=== PATIENT | female | born 1935 | race Caucasian/White ===

== ENCOUNTER 2022-10-06 18:46 | Inpatient (IN) | payer OTHER, MEDICARE ==
[2022-10-06] MEDS ORDERED: METOPROLOL TARTRATE 5 MG/5 ML VIAL IVPUSH ONE (19:55)
[2022-10-06] MEDS ORDERED: METOPROLOL TARTRATE 50 MG TABLET (FP) PO ONE (19:55)
[2022-10-06] MEDS ORDERED: METOPROLOL TARTRATE 5 MG/5 ML VIAL ONE (19:59)
[2022-10-06 20:22] LABS: CHLORIDE 96 mmol/L (98-107); SODIUM 132 mmol/L (136-145)
[2022-10-06 20:26] LABS: ALBUMIN 3.3 g/dl (3.4-5.0); ANION GAP 14 MMOL/L (8-16); CALCIUM 10.9 mg/dL (8.5-10.1); CO2 21 mmol/L (21-32); GLUCOSE,RANDOM 120 mg/dL (74-106)
[2022-10-06 20:27] LABS: BLOOD UREA NITROGEN 25.4 mg/dL (7-18); LIPASE 37 U/L (73-393)
[2022-10-06 20:29] LABS: SGPT/ALT 47 U/L (13-61)
[2022-10-06 20:30] LABS: CREATININE 2.1 mg/dL (0.55-1.3); SGOT/AST 68 U/L (15-37)
[2022-10-06 20:31] LABS: BILIRUBIN,TOTAL 1.6 mg/dL (0.2-1); TOT PROT 7.8 g/dl (6.4-8.2)
[2022-10-06 20:32] LABS: ALK PHOS 158 U/L (45-117)
[2022-10-06 20:33] LABS: BASO % 0.2 % (0-2.0); HEMOGLOBIN 14.4 GM/dL (10.7-15.3); MCH 33.3 pg (25.7-33.7); MCHC 33.6 g/dl (32.0-36.0); MEAN CELL VOLUME 99.2 fl (80-96); MEAN PLT VOLUME 9.1 fl (7.5-11.1); MONO % 12.2 % (3.8-10.2); NEUT % 81.6 % (42.8-82.8); PLATELET COUNT 263 10^3/uL (134-434); RBC 4.33 M/mm3 (3.60-5.2); RDW 14.6 % (11.6-15.6); WHITE BLOOD COUNT 16.6 K/mm3 (4.0-10.0)
[2022-10-06 20:34] LABS: N-TERMINAL BNP 3620.6 pg/ml (5-450)
[2022-10-06] MEDS ORDERED: SODIUM CHLORIDE 0.9% 500 ML INFUS.BAG IV ONE (20:37)
[2022-10-06 20:42] LABS: INR 1.78 (0.83-1.09); PROTHROMBIN TIME (PATIENT) 20.6 SEC (9.7-13.0)
[2022-10-06 20:45] LABS: ACTIVATED PTT 28.5 SECONDS (25.2-36.5)
[2022-10-06 22:12] LABS: EPI CELLS 13 /uL (0-25.1); HYALINE CASTS 3 /uL (0-3.1); URINE APPEARANCE TURBID; URINE BACTERIA >9,000 /uL (0-1359); URINE BILIRUBIN 1+ (NEGATIVE); URINE COLOR DK YELLOW; URINE GLUCOSE (UA) NEGATIVE (NEGATIVE); URINE KETONE TRACE (NEGATIVE); URINE LEUK ESTERASE 3+ (NEGATIVE); URINE NITRITE NEGATIVE (NEGATIVE); URINE PROTEIN 2+ (NEGATIVE); URINE RBC 36 /uL (0-23.9); URINE WBC 1648 /uL (0-25.8)
[2022-10-06] MEDS ORDERED: CEFTRIAXONE 1 GM in DEXTROSE 5%-WATER - 50 ML IVPB ONE (22:18)
[2022-10-06 23:58] LABS: MAGNESIUM 1.5 mg/dL (1.8-2.4)
[2022-10-07 00:02] LABS: PHOSPHOROUS 2.5 mg/dL (2.5-4.9)
[2022-10-07] MEDS ORDERED: METOPROLOL TARTRATE 5 MG/5 ML VIAL IVPUSH ONE (00:03)
[2022-10-07] MEDS ORDERED: METOPROLOL TARTRATE 50 MG TABLET (FP) ONE ×2 (00:20→09:33)
[2022-10-07] MEDS ORDERED: CEFTRIAXONE 1 GM/50 ML BAG ONE ×2 (00:20→09:34)
[2022-10-07] MEDS ORDERED: MAGNESIUM SULF 50% (8.12 MEQ/2 ML-1 GM VIAL) IVPB ONE (01:53)
[2022-10-07] MEDS ORDERED: SODIUM CHLORIDE 1,000 ML IV SCH (02:00)
[2022-10-07] MEDS ORDERED: MAGNESIUM SULFATE IN WATER 2 GM/50 ML IVPB IVPB ONE (04:48)
[2022-10-07] MEDS ORDERED: HEPARIN NA (PORCINE) 5,000 UNITS/ML 1ML VIAL SQ SCH (06:00)
[2022-10-07 08:23] LABS: BASO % 0.2 % (0-2.0); EOS % 0.1 % (0-4.5); HEMATOCRIT 43.4 % (32.4-45.2); HEMOGLOBIN 14.4 GM/dL (10.7-15.3); LYMPH % 6.5 % (8-40); MCH 33.2 pg (25.7-33.7); MCHC 33.3 g/dl (32.0-36.0); MEAN CELL VOLUME 99.8 fl (80-96); MEAN PLT VOLUME 8.8 fl (7.5-11.1); MONO % 10.4 % (3.8-10.2); NEUT % 82.8 % (42.8-82.8); PLATELET COUNT 259 10^3/uL (134-434); RBC 4.34 M/mm3 (3.60-5.2); RDW 14.7 % (11.6-15.6)
[2022-10-07 09:00] LABS: ALBUMIN 2.8 g/dl (3.4-5.0); BLOOD UREA NITROGEN 21.3 mg/dL (7-18); MAGNESIUM 2.6 mg/dL (1.8-2.4)
[2022-10-07 09:02] LABS: BILIRUBIN,DIRECT 0.5 mg/dL (0.0-0.2)
[2022-10-07 09:03] LABS: CREATININE 1.1 mg/dL (0.55-1.3); PHOSPHOROUS 2.6 mg/dL (2.5-4.9)
[2022-10-07 09:05] LABS: BILIRUBIN,TOTAL 1.2 mg/dL (0.2-1); TOT PROT 7.1 g/dl (6.4-8.2)
[2022-10-07] MEDS ORDERED: APIXABAN 2.5 MG TABLET ONE (09:33)
[2022-10-07] MEDS ORDERED: LEVOTHYROXINE NA 50 MCG TABLET (FP) ONE (09:34)
[2022-10-07] MEDS: CEFTRIAXONE 1 GM in DEXTROSE 5%-WATER - 50 ML IVPB SCH (09:41)
[2022-10-07] MEDS: LEVOTHYROXINE NA 50 MCG TABLET (FP) PO SCH (09:41)
[2022-10-07] MEDS: APIXABAN 2.5 MG TABLET PO SCH ×2 (09:41→21:52)
[2022-10-07] MEDS ORDERED: POTASSIUM CHLORIDE TABS 20 MEQ TABLET.ER (FP) PO ONE (14:04)
[2022-10-07] MEDS: ACETAMINOPHEN 325 MG TABLET (FP) PO PRN ×2 (14:21→18:21)
[2022-10-08] MEDS: LEVOTHYROXINE NA 50 MCG TABLET (FP) PO SCH (06:14)
[2022-10-08 08:28] LABS: BASO % 0.2 % (0-2.0); EOS % 0.5 % (0-4.5); HEMATOCRIT 40.3 % (32.4-45.2); HEMOGLOBIN 13.5 GM/dL (10.7-15.3); LYMPH % 6.1 % (8-40); MCH 33.4 pg (25.7-33.7); MCHC 33.6 g/dl (32.0-36.0); MEAN CELL VOLUME 99.3 fl (80-96); MEAN PLT VOLUME 9.3 fl (7.5-11.1); NEUT % 83.2 % (42.8-82.8); PLATELET COUNT 282 10^3/uL (134-434); RBC 4.05 M/mm3 (3.60-5.2); RDW 14.7 % (11.6-15.6); WHITE BLOOD COUNT 14.4 K/mm3 (4.0-10.0)
[2022-10-08 08:49] LABS: CALCIUM 10.4 mg/dL (8.5-10.1)
[2022-10-08 08:50] LABS: BLOOD UREA NITROGEN 17.9 mg/dL (7-18); MAGNESIUM 1.9 mg/dL (1.8-2.4)
[2022-10-08 08:53] LABS: CREATININE 0.8 mg/dL (0.55-1.3)
[2022-10-08] MEDS: CEFTRIAXONE 1 GM in DEXTROSE 5%-WATER - 50 ML IVPB SCH (10:13)
[2022-10-08] MEDS: APIXABAN 2.5 MG TABLET PO SCH ×2 (10:13→22:22)
[2022-10-09] MEDS: LEVOTHYROXINE NA 50 MCG TABLET (FP) PO SCH (06:14)
[2022-10-09 08:41] LABS: BASO % 0.2 % (0-2.0); EOS % 0.1 % (0-4.5); LYMPH % 5.5 % (8-40); MCH 33.7 pg (25.7-33.7); MCHC 34.1 g/dl (32.0-36.0); MEAN CELL VOLUME 98.8 fl (80-96); MONO % 10.7 % (3.8-10.2); NEUT % 83.5 % (42.8-82.8); PLATELET COUNT 304 10^3/uL (134-434); RBC 4.15 M/mm3 (3.60-5.2); RDW 14.8 % (11.6-15.6); WHITE BLOOD COUNT 14.5 K/mm3 (4.0-10.0)
[2022-10-09 08:43] LABS: CALCIUM 10.9 mg/dL (8.5-10.1)
[2022-10-09 08:44] LABS: ALBUMIN 2.6 g/dl (3.4-5.0); BLOOD UREA NITROGEN 19.5 mg/dL (7-18); MAGNESIUM 1.9 mg/dL (1.8-2.4)
[2022-10-09 08:47] LABS: CREATININE 0.8 mg/dL (0.55-1.3)
[2022-10-09 08:49] LABS: BILIRUBIN,TOTAL 1.1 mg/dL (0.2-1)
[2022-10-09] MEDS: CEFTRIAXONE 1 GM in DEXTROSE 5%-WATER - 50 ML IVPB SCH (09:15)
[2022-10-09] MEDS: APIXABAN 2.5 MG TABLET PO SCH ×2 (09:15→22:03)
[2022-10-09] MEDS: ACETAMINOPHEN 325 MG TABLET (FP) PO PRN (16:38)
[2022-10-09] MEDS ORDERED: METOPROLOL TARTRATE 5 MG/5 ML VIAL IVPUSH PRN (17:22)
[2022-10-09] MEDS ORDERED: traMADol HCL 50 MG TABLET PO ONE (17:22)
[2022-10-09] MEDS ORDERED: traMADol HCL 50 MG TABLET PO PRN (18:06)
[2022-10-10] MEDS: LEVOTHYROXINE NA 50 MCG TABLET (FP) PO SCH (06:39)
[2022-10-10 08:15] LABS: BASO % 0.3 % (0-2.0); EOS % 0.3 % (0-4.5); HEMATOCRIT 38.8 % (32.4-45.2); HEMOGLOBIN 13.1 GM/dL (10.7-15.3); LYMPH % 6.9 % (8-40); MCH 33.4 pg (25.7-33.7); MCHC 33.8 g/dl (32.0-36.0); MEAN CELL VOLUME 98.8 fl (80-96); MEAN PLT VOLUME 8.9 fl (7.5-11.1); MONO % 13.2 % (3.8-10.2); NEUT % 79.3 % (42.8-82.8); PLATELET COUNT 320 10^3/uL (134-434); RBC 3.92 M/mm3 (3.60-5.2); WHITE BLOOD COUNT 16.2 K/mm3 (4.0-10.0)
[2022-10-10 08:28] LABS: ALBUMIN 2.1 g/dl (3.4-5.0); BLOOD UREA NITROGEN 23.1 mg/dL (7-18); CALCIUM 10.8 mg/dL (8.5-10.1); MAGNESIUM 1.9 mg/dL (1.8-2.4)
[2022-10-10 08:30] LABS: CREATININE 0.7 mg/dL (0.55-1.3)
[2022-10-10 08:32] LABS: TOT PROT 6.4 g/dl (6.4-8.2)
[2022-10-10] MEDS: CEFTRIAXONE 1 GM in DEXTROSE 5%-WATER - 50 ML IVPB SCH (09:11)
[2022-10-10] MEDS: APIXABAN 2.5 MG TABLET PO SCH ×2 (09:11→21:09)
[2022-10-11] MEDS: LEVOTHYROXINE NA 50 MCG TABLET (FP) PO SCH (06:40)
[2022-10-11 08:29] LABS: BASO % 0.3 % (0-2.0); EOS % 0.5 % (0-4.5); HEMATOCRIT 38.2 % (32.4-45.2); HEMOGLOBIN 12.9 GM/dL (10.7-15.3); MCH 33.5 pg (25.7-33.7); MCHC 33.7 g/dl (32.0-36.0); MEAN CELL VOLUME 99.6 fl (80-96); MEAN PLT VOLUME 9.1 fl (7.5-11.1); MONO % 10.3 % (3.8-10.2); NEUT % 81.9 % (42.8-82.8); PLATELET COUNT 337 10^3/uL (134-434); RBC 3.83 M/mm3 (3.60-5.2); RDW 14.8 % (11.6-15.6); WHITE BLOOD COUNT 13.4 K/mm3 (4.0-10.0)
[2022-10-11 08:56] LABS: ALBUMIN 2.2 g/dl (3.4-5.0)
[2022-10-11 08:57] LABS: BLOOD UREA NITROGEN 27.6 mg/dL (7-18); CALCIUM 10.9 mg/dL (8.5-10.1)
[2022-10-11 09:00] LABS: CREATININE 0.8 mg/dL (0.55-1.3)
[2022-10-11 09:01] LABS: TOT PROT 6.5 g/dl (6.4-8.2)
[2022-10-11] MEDS: CEFTRIAXONE 1 GM in DEXTROSE 5%-WATER - 50 ML IVPB SCH (09:58)
[2022-10-11] MEDS: APIXABAN 2.5 MG TABLET PO SCH ×2 (09:59→22:09)
[2022-10-11] MEDS ORDERED: SODIUM CHLORIDE 1,000 ML IV SCH (16:30)
[2022-10-12] MEDS: LEVOTHYROXINE NA 50 MCG TABLET (FP) PO SCH (06:26)
[2022-10-12 08:01] LABS: HEMATOCRIT 39.7 % (32.4-45.2); HEMOGLOBIN 13.3 GM/dL (10.7-15.3); MCH 33.4 pg (25.7-33.7); MCHC 33.5 g/dl (32.0-36.0); MEAN CELL VOLUME 99.8 fl (80-96); MEAN PLT VOLUME 8.9 fl (7.5-11.1); PLATELET COUNT 370 10^3/uL (134-434); RBC 3.97 M/mm3 (3.60-5.2); RDW 14.7 % (11.6-15.6); WHITE BLOOD COUNT 13.3 K/mm3 (4.0-10.0)
[2022-10-12 08:24] LABS: CALCIUM 10.4 mg/dL (8.5-10.1)
[2022-10-12 08:25] LABS: BLOOD UREA NITROGEN 26.2 mg/dL (7-18)
[2022-10-12 08:28] LABS: CREATININE 0.7 mg/dL (0.55-1.3); PHOSPHOROUS 2.9 mg/dL (2.5-4.9)
[2022-10-12 08:29] LABS: BILIRUBIN,TOTAL 1.1 mg/dL (0.2-1); TOT PROT 6.4 g/dl (6.4-8.2)
[2022-10-12] MEDS: APIXABAN 2.5 MG TABLET PO SCH ×2 (09:35→21:46)
[2022-10-12 12:01] LABS: BILIRUBIN,DIRECT 0.5 mg/dL (0.0-0.2)
[2022-10-12] MEDS: POLYETHYLENE GLYCOL (HEALTHYLAX) 3350 17 GM PACKET PO SCH (21:49)
[2022-10-13] MEDS: LEVOTHYROXINE NA 50 MCG TABLET (FP) PO SCH (06:32)
[2022-10-13 07:27] LABS: HEMATOCRIT 38.8 % (32.4-45.2); MCH 33.5 pg (25.7-33.7); MCHC 33.6 g/dl (32.0-36.0); MEAN CELL VOLUME 99.7 fl (80-96); MEAN PLT VOLUME 8.9 fl (7.5-11.1); PLATELET COUNT 387 10^3/uL (134-434); RBC 3.89 M/mm3 (3.60-5.2); RDW 14.7 % (11.6-15.6); WHITE BLOOD COUNT 12.8 K/mm3 (4.0-10.0)
[2022-10-13 07:44] LABS: CALCIUM 10.5 mg/dL (8.5-10.1)
[2022-10-13 07:45] LABS: BLOOD UREA NITROGEN 28.2 mg/dL (7-18)
[2022-10-13 07:48] LABS: CREATININE 0.8 mg/dL (0.55-1.3)
[2022-10-13 07:49] LABS: BILIRUBIN,TOTAL 0.7 mg/dL (0.2-1); TOT PROT 6.4 g/dl (6.4-8.2)
[2022-10-13] MEDS: POLYETHYLENE GLYCOL (HEALTHYLAX) 3350 17 GM PACKET PO SCH ×2 (10:26→23:04)
[2022-10-13] MEDS: APIXABAN 2.5 MG TABLET PO SCH ×2 (10:27→23:04)
[2022-10-13] MEDS: LACTULOSE 20 GM/30 ML UDC (FOR ORAL USE ONLY) PO SCH ×2 (18:09→23:11)
[2022-10-14] MEDS: LEVOTHYROXINE NA 50 MCG TABLET (FP) PO SCH (06:04)
[2022-10-14] MEDS: POLYETHYLENE GLYCOL (HEALTHYLAX) 3350 17 GM PACKET PO SCH ×2 (09:22→22:01)
[2022-10-14] MEDS: APIXABAN 2.5 MG TABLET PO SCH ×2 (09:22→22:01)
[2022-10-14] MEDS: LACTULOSE 20 GM/30 ML UDC (FOR ORAL USE ONLY) PO SCH (09:22)
[2022-10-14 09:58] LABS: HEMATOCRIT 39.3 % (32.4-45.2); MCH 33.6 pg (25.7-33.7); MCHC 33.2 g/dl (32.0-36.0); MEAN CELL VOLUME 101.2 fl (80-96); PLATELET COUNT 424 10^3/uL (134-434); RBC 3.89 M/mm3 (3.60-5.2); RDW 15.2 % (11.6-15.6); WHITE BLOOD COUNT 13.9 K/mm3 (4.0-10.0)
[2022-10-14 10:23] LABS: CALCIUM 10.4 mg/dL (8.5-10.1)
[2022-10-14 10:24] LABS: ALBUMIN 1.9 g/dl (3.4-5.0); BLOOD UREA NITROGEN 23.9 mg/dL (7-18); MAGNESIUM 2.1 mg/dL (1.8-2.4)
[2022-10-14 10:26] LABS: CREATININE 0.7 mg/dL (0.55-1.3); PHOSPHOROUS 2.6 mg/dL (2.5-4.9)
[2022-10-14 10:29] LABS: BILIRUBIN,TOTAL 0.9 mg/dL (0.2-1); TOT PROT 6.4 g/dl (6.4-8.2)
[2022-10-14] MEDS ORDERED: SODIUM CHLORIDE 1,000 ML IV SCH (11:00)
[2022-10-14 18:45] LABS: EPI CELLS 5 /uL (0-25.1); HYALINE CASTS 1 /uL (0-3.1); PH,URINE 5.5 (5.0-8.0); URINE APPEARANCE CLOUDY; URINE BACTERIA 0 /uL (0-1359); URINE BILIRUBIN NEGATIVE (NEGATIVE); URINE COLOR DK YELLOW; URINE GLUCOSE (UA) NEGATIVE (NEGATIVE); URINE KETONE NEGATIVE (NEGATIVE); URINE LEUK ESTERASE TRACE (NEGATIVE); URINE NITRITE NEGATIVE (NEGATIVE); URINE PROTEIN TRACE (NEGATIVE); URINE WBC 62 /uL (0-25.8)
[2022-10-15] MEDS: LEVOTHYROXINE NA 50 MCG TABLET (FP) PO SCH ×2 (05:56→06:01)
[2022-10-15 09:07] LABS: GAMMA GLUTAMYL TRANSPEPTIDASE 188 U/L (5-85)
[2022-10-15] MEDS: APIXABAN 2.5 MG TABLET PO SCH ×2 (09:15→22:12)
[2022-10-15] MEDS: POLYETHYLENE GLYCOL (HEALTHYLAX) 3350 17 GM PACKET PO SCH (09:15)
[2022-10-15] MEDS: THIAMINE HCL 200 MG/2 ML VIAL IVPB SCH ×3 (09:16→22:14)
[2022-10-15 11:43] LABS: BASO % 0.2 % (0-2.0); EOS % 0.5 % (0-4.5); HEMATOCRIT 37.2 % (32.4-45.2); HEMOGLOBIN 12.2 GM/dL (10.7-15.3); LYMPH % 8.4 % (8-40); MCHC 32.7 g/dl (32.0-36.0); MEAN PLT VOLUME 8.6 fl (7.5-11.1); MONO % 11.9 % (3.8-10.2); PLATELET COUNT 399 10^3/uL (134-434); RBC 3.69 M/mm3 (3.60-5.2); RDW 14.8 % (11.6-15.6); WHITE BLOOD COUNT 13.6 K/mm3 (4.0-10.0)
[2022-10-15 11:47] LABS: INR 1.57 (0.83-1.09); PROTHROMBIN TIME (PATIENT) 18.1 SEC (9.7-13.0)
[2022-10-15 12:19] LABS: ALBUMIN 1.7 g/dl (3.4-5.0); BLOOD UREA NITROGEN 21.4 mg/dL (7-18); CALCIUM 10.2 mg/dL (8.5-10.1)
[2022-10-15 12:23] LABS: BILIRUBIN,DIRECT 0.3 mg/dL (0.0-0.2); CREATININE 0.7 mg/dL (0.55-1.3)
[2022-10-15 12:24] LABS: BILIRUBIN,TOTAL 0.7 mg/dL (0.2-1); TOT PROT 5.8 g/dl (6.4-8.2)
[2022-10-15 14:50] VITALS: BMI 25.9
[2022-10-15] MEDS: AMINO ACIDS/PROTEIN HYDROLYS 30 ML LIQUID.PKT PO SCH (17:31)
[2022-10-16] MEDS: POLYETHYLENE GLYCOL (HEALTHYLAX) 3350 17 GM PACKET PO SCH ×3 (00:55→22:07)
[2022-10-16] MEDS: THIAMINE HCL 200 MG/2 ML VIAL IVPB SCH ×3 (05:45→22:08)
[2022-10-16] MEDS: LEVOTHYROXINE NA 50 MCG TABLET (FP) PO SCH (07:34)
[2022-10-16 07:35] LABS: HEMATOCRIT 38.2 % (32.4-45.2); HEMOGLOBIN 12.7 GM/dL (10.7-15.3); MCH 33.5 pg (25.7-33.7); MCHC 33.4 g/dl (32.0-36.0); MEAN CELL VOLUME 100.3 fl (80-96); MEAN PLT VOLUME 8.4 fl (7.5-11.1); PLATELET COUNT 392 10^3/uL (134-434); RDW 15.2 % (11.6-15.6); WHITE BLOOD COUNT 15.6 K/mm3 (4.0-10.0)
[2022-10-16 07:57] LABS: CALCIUM 10.3 mg/dL (8.5-10.1)
[2022-10-16 07:58] LABS: ALBUMIN 1.7 g/dl (3.4-5.0); BLOOD UREA NITROGEN 27.1 mg/dL (7-18); MAGNESIUM 1.8 mg/dL (1.8-2.4)
[2022-10-16 08:00] LABS: BILIRUBIN,TOTAL 0.5 mg/dL (0.2-1)
[2022-10-16 08:02] LABS: CREATININE 0.6 mg/dL (0.55-1.3)
[2022-10-16] MEDS: MULTIVITAMINS (DAILY MVI) TABLET (FP) PO SCH (09:55)
[2022-10-16] MEDS: AMINO ACIDS/PROTEIN HYDROLYS 30 ML LIQUID.PKT PO SCH ×2 (09:55→18:08)
[2022-10-16] MEDS: APIXABAN 2.5 MG TABLET PO SCH ×2 (09:55→22:07)
[2022-10-16] MEDS: ASCORBIC ACID 250 MG TABLET (FP) PO SCH (09:55)
[2022-10-16 12:43] LABS: EPI CELLS 32 /uL (0-25.1); HYALINE CASTS 4 /uL (0-3.1); PH,URINE 5.5 (5.0-8.0); URINE APPEARANCE CLOUDY; URINE BACTERIA 13 /uL (0-1359); URINE BILIRUBIN NEGATIVE (NEGATIVE); URINE COLOR YELLOW; URINE GLUCOSE (UA) NEGATIVE (NEGATIVE); URINE KETONE NEGATIVE (NEGATIVE); URINE LEUK ESTERASE 1+ (NEGATIVE); URINE NITRITE NEGATIVE (NEGATIVE); URINE PROTEIN TRACE (NEGATIVE); URINE RBC 2621 /uL (0-23.9); URINE WBC 167 /uL (0-25.8)
[2022-10-16 13:28] LABS: URINE CRYSTALS CALCIUM OXALATE SEEN /hpf
[2022-10-17] MEDS: THIAMINE HCL 200 MG/2 ML VIAL IVPB SCH ×3 (06:29→22:22)
[2022-10-17] MEDS: LEVOTHYROXINE NA 50 MCG TABLET (FP) PO SCH (06:30)
[2022-10-17 07:53] LABS: BASO % 0.2 % (0-2.0); EOS % 0.3 % (0-4.5); HEMATOCRIT 37.1 % (32.4-45.2); LYMPH % 8.8 % (8-40); MCH 32.8 pg (25.7-33.7); MCHC 32.3 g/dl (32.0-36.0); MEAN CELL VOLUME 101.4 fl (80-96); MEAN PLT VOLUME 8.7 fl (7.5-11.1); MONO % 11.2 % (3.8-10.2); NEUT % 79.5 % (42.8-82.8); PLATELET COUNT 384 10^3/uL (134-434); RBC 3.65 M/mm3 (3.60-5.2); RDW 14.9 % (11.6-15.6); WHITE BLOOD COUNT 16.2 K/mm3 (4.0-10.0)
[2022-10-17 08:16] LABS: ALBUMIN 1.7 g/dl (3.4-5.0); MAGNESIUM 1.8 mg/dL (1.8-2.4)
[2022-10-17 08:18] LABS: PHOSPHOROUS 2.7 mg/dL (2.5-4.9)
[2022-10-17 08:19] LABS: CREATININE 0.7 mg/dL (0.55-1.3)
[2022-10-17 08:20] LABS: BILIRUBIN,TOTAL 0.6 mg/dL (0.2-1); TOT PROT 5.8 g/dl (6.4-8.2)
[2022-10-17] MEDS: APIXABAN 2.5 MG TABLET PO SCH ×2 (09:10→22:21)
[2022-10-17] MEDS: MULTIVITAMINS (DAILY MVI) TABLET (FP) PO SCH (09:10)
[2022-10-17] MEDS: ASCORBIC ACID 250 MG TABLET (FP) PO SCH (09:10)
[2022-10-17] MEDS: AMINO ACIDS/PROTEIN HYDROLYS 30 ML LIQUID.PKT PO SCH ×2 (09:11→17:26)
[2022-10-17] MEDS: POLYETHYLENE GLYCOL (HEALTHYLAX) 3350 17 GM PACKET PO SCH (09:11)
[2022-10-17] MEDS ORDERED: MAGNESIUM SULF 50% (8.12 MEQ/2 ML-1 GM VIAL) IVPB ONE (16:43)
[2022-10-17] MEDS ORDERED: NAPH,MB-DB/K PH,MBDB POWDER PACKET PO ONE (16:44)
[2022-10-18] MEDS: POLYETHYLENE GLYCOL (HEALTHYLAX) 3350 17 GM PACKET PO SCH ×3 (00:37→22:33)
[2022-10-18 04:05] VITALS: RESP 20
[2022-10-18] MEDS: LEVOTHYROXINE NA 50 MCG TABLET (FP) PO SCH (06:17)
[2022-10-18 07:49] LABS: HEMATOCRIT 36.9 % (32.4-45.2); HEMOGLOBIN 12.1 GM/dL (10.7-15.3); MCH 33.1 pg (25.7-33.7); MCHC 32.9 g/dl (32.0-36.0); MEAN CELL VOLUME 100.7 fl (80-96); MEAN PLT VOLUME 8.8 fl (7.5-11.1); PLATELET COUNT 390 10^3/uL (134-434); RBC 3.66 M/mm3 (3.60-5.2); RDW 15.1 % (11.6-15.6); WHITE BLOOD COUNT 16.3 K/mm3 (4.0-10.0)
[2022-10-18 08:18] LABS: ALBUMIN 1.6 g/dl (3.4-5.0); PHOSPHOROUS 2.4 mg/dL (2.5-4.9)
[2022-10-18 08:20] LABS: BILIRUBIN,TOTAL 0.6 mg/dL (0.2-1); TOT PROT 5.7 g/dl (6.4-8.2)
[2022-10-18 08:22] LABS: CREATININE 0.6 mg/dL (0.55-1.3)
[2022-10-18 08:31] LABS: BLOOD UREA NITROGEN 25.6 mg/dL (7-18); CALCIUM 9.9 mg/dL (8.5-10.1)
[2022-10-18] MEDS: APIXABAN 2.5 MG TABLET PO SCH ×3 (10:04→22:33)
[2022-10-18] MEDS: ASCORBIC ACID 250 MG TABLET (FP) PO SCH (10:04)
[2022-10-18] MEDS: AMINO ACIDS/PROTEIN HYDROLYS 30 ML LIQUID.PKT PO SCH ×2 (10:04→18:06)
[2022-10-18] MEDS: MULTIVITAMINS (DAILY MVI) TABLET (FP) PO SCH (10:05)
[2022-10-18] MEDS: dilTIAZem HCL 30 MG TABLET PO SCH ×2 (14:20→22:33)
[2022-10-18] MEDS ORDERED: NAPH,MB-DB/K PH,MBDB POWDER PACKET PO ONE (17:39)
[2022-10-19] MEDS: dilTIAZem HCL 30 MG TABLET PO SCH ×2 (06:46→14:54)
[2022-10-19] MEDS: LEVOTHYROXINE NA 50 MCG TABLET (FP) PO SCH (06:46)
[2022-10-19 08:29] LABS: HEMATOCRIT 34.6 % (32.4-45.2); HEMOGLOBIN 11.5 GM/dL (10.7-15.3); MCH 33.3 pg (25.7-33.7); MCHC 33.2 g/dl (32.0-36.0); MEAN CELL VOLUME 100.5 fl (80-96); MEAN PLT VOLUME 8.8 fl (7.5-11.1); PLATELET COUNT 331 10^3/uL (134-434); RBC 3.44 M/mm3 (3.60-5.2); RDW 14.9 % (11.6-15.6); WHITE BLOOD COUNT 18.4 K/mm3 (4.0-10.0)
[2022-10-19 09:14] LABS: CALCIUM 9.7 mg/dL (8.5-10.1)
[2022-10-19 09:15] LABS: ALBUMIN 1.4 g/dl (3.4-5.0); BLOOD UREA NITROGEN 25.6 mg/dL (7-18); MAGNESIUM 1.8 mg/dL (1.8-2.4)
[2022-10-19 09:18] LABS: CREATININE 0.5 mg/dL (0.55-1.3); PHOSPHOROUS 2.6 mg/dL (2.5-4.9)
[2022-10-19 09:19] LABS: BILIRUBIN,TOTAL 0.7 mg/dL (0.2-1); TOT PROT 5.4 g/dl (6.4-8.2)
[2022-10-19] MEDS: AMINO ACIDS/PROTEIN HYDROLYS 30 ML LIQUID.PKT PO SCH (09:52)
[2022-10-19] MEDS: ASCORBIC ACID 250 MG TABLET (FP) PO SCH (09:54)
[2022-10-19] MEDS: MULTIVITAMINS (DAILY MVI) TABLET (FP) PO SCH (09:54)
[2022-10-19] MEDS: POLYETHYLENE GLYCOL (HEALTHYLAX) 3350 17 GM PACKET PO SCH (09:54)
[2022-10-19] MEDS: APIXABAN 2.5 MG TABLET PO SCH (10:58)
[2022-10-19 15:33] VITALS: BP 110/62; PULSE 99; TEMP 98
== END 2022-10-19 16:17 | disposition short-term general hospital (02) | DRG 689 ==
LOC: JER 18:46 → JERBED 19:58 → J4W 10-07 13:39
PROVIDERS: ADMIT Internal Medicine; ATTEND Internal Medicine
DX: N39.0 Urinary tract infection, site not specified (principal); G93.41 Metabolic encephalopathy; M62.82 Rhabdomyolysis; N17.9 Acute kidney failure, unspecified; I24.8 Other forms of acute ischemic heart disease; I13.0 Hypertensive heart and chronic kidney disease with heart failure and stage 1 through stage 4 chronic kidney disease, or unspecified chronic kidney disease; E87.1 Hypo-osmolality and hyponatremia; I48.91 Unspecified atrial fibrillation; I10 Essential (primary) hypertension; E78.5 Hyperlipidemia, unspecified; E03.9 Hypothyroidism, unspecified; B96.20 Unspecified Escherichia coli [E. coli] as the cause of diseases classified elsewhere; R74.01 Elevation of levels of liver transaminase levels; D72.829 Elevated white blood cell count, unspecified
CPT/HCPCS: 0241U-QW; 36415; 70450-TC; 71045-TC-FY; 72125-TC; 72128-TC; 72131-TC; 72170-TC-FY; 74181-TC; 76700-TC; 76775-TC; 80048; 80053; 80061; 80076; 81003; 82140; 82248; 82310; 82550; 82553; 82607; 82728; 82746; 82962; 82977; 83036; 83516; 83540; 83550; 83690; 83735; 83880; 83970; 84100; 84439; 84443; 84484; 85025; 85027; 85610; 85730; 86038; 86664; 86695; 86696; 86704; 86708; 86709; 86803; 86850; 86900; 86901; 87040; 87086; 87186; 87340; 87497; 87517; 87529; 87799; 93005; 93010; 93306-TC; 97116-GP; 97162-GP; 99285-25; C9803-CS; U0003; U0005

== ENCOUNTER 2023-02-08 17:39 | Inpatient (IN) | payer OTHER, MEDICARE ==
[2023-02-08] MEDS ORDERED: SODIUM CHLORIDE 500 ML IV ONE (18:20)
[2023-02-08] MEDS ORDERED: CEFTRIAXONE 1,000 MG in DEXTROSE 5%-WATER - 50 ML IVPB ONE (18:20)
[2023-02-08 18:23] VITALS: BMI 24.1
[2023-02-08 18:47] LABS: PROTHROMBIN TIME (PATIENT) 23.2 SEC (9.7-13.0)
[2023-02-08 18:53] LABS: HEMATOCRIT 31.4 % (32.4-45.2); HEMOGLOBIN 10.3 G/dL (10.7-15.3); MCH 32.2 pg (25.7-33.7); MCHC 32.7 g/dl (32.0-36.0); MEAN CELL VOLUME 98.3 fl (80-96); MEAN PLT VOLUME 8.6 fl (7.5-11.1); PLATELET COUNT 244.6 10^3/uL (134-434); RBC 3.19 10^6/uL (3.60-5.2); RDW 15.4 % (11.6-15.6); WHITE BLOOD COUNT 12.3 10^3/uL (4.0-10.8)
[2023-02-08 18:54] LABS: ALBUMIN 2.3 g/dl (3.4-5.0); BILIRUBIN,TOTAL 0.5 mg/dl (0.2-1); CALCIUM 9.6 mg/dl (8.5-10); CREATININE 0.6 mg/dl (0.55-1.3); POTASSIUM 3.7 mmol/L (3.5-5.1); TOT PROT 6.5 g/dl (6.4-8.2)
[2023-02-08 18:59] LABS: EPITHELIAL CELLS FEW /hpf
[2023-02-08] MEDS ORDERED: cefTRIAXone SODIUM 1 GM VIAL ONE (19:07)
[2023-02-08] MEDS ORDERED: MELATONIN 1 MG TABLET PO PRN (21:10)
[2023-02-08 21:11] LABS: PLATELET ESTIMATE ADEQUATE
[2023-02-08] MEDS: APIXABAN 2.5 MG TABLET PO SCH (23:00)
[2023-02-08] MEDS: METOPROLOL TARTRATE 25 MG TABLET (FP) PO SCH (23:00)
[2023-02-08] MEDS: ATORVASTATIN CA 20 MG TABLET (FP) PO SCH (23:00)
[2023-02-09] MEDS: LEVOTHYROXINE NA 75 MCG TABLET (FP) PO SCH (06:02)
[2023-02-09] MEDS: TAMSULOSIN HCL 0.4 MG CAP PO SCH (08:15)
[2023-02-09] MEDS: CYANOCOBALAMIN 1,000 MCG TABLET (FP) PO SCH (09:41)
[2023-02-09] MEDS: METOPROLOL TARTRATE 25 MG TABLET (FP) PO SCH ×3 (09:41→22:58)
[2023-02-09] MEDS: CEFTRIAXONE 1 GM in DEXTROSE 5%-WATER - 50 ML IVPB SCH (09:42)
[2023-02-09] MEDS: APIXABAN 2.5 MG TABLET PO SCH ×2 (09:42→22:55)
[2023-02-09] MEDS: MULTIVITAMINS (DAILY MVI) TABLET (FP) PO SCH (09:42)
[2023-02-09 16:43] LABS: IRON SERUM 20 ug/dL (50-175); TOTAL IRON BINDING CAPACITY 199 ug/dL (250-450)
[2023-02-09] MEDS: ATORVASTATIN CA 20 MG TABLET (FP) PO SCH (22:55)
[2023-02-10] MEDS: METOPROLOL TARTRATE 25 MG TABLET (FP) PO SCH ×3 (05:57→22:07)
[2023-02-10] MEDS: TAMSULOSIN HCL 0.4 MG CAP PO SCH (07:47)
[2023-02-10] MEDS: LEVOTHYROXINE NA 75 MCG TABLET (FP) PO SCH (07:47)
[2023-02-10 08:15] LABS: HEMATOCRIT 32.6 % (32.4-45.2); HEMOGLOBIN 10.4 G/dL (10.7-15.3); MCH 31.2 pg (25.7-33.7); MCHC 31.7 g/dl (32.0-36.0); MEAN CELL VOLUME 98.1 fl (80-96); MEAN PLT VOLUME 8.9 fl (7.5-11.1); PLATELET COUNT 231.3 10^3/uL (134-434); RBC 3.32 10^6/uL (3.60-5.2); RDW 15.3 % (11.6-15.6); WHITE BLOOD COUNT 8.3 10^3/uL (4.0-10.8)
[2023-02-10 08:48] LABS: ALBUMIN 2.3 g/dl (3.4-5.0); BILIRUBIN,TOTAL 0.4 mg/dl (0.2-1); CREATININE 0.5 mg/dl (0.55-1.3); POTASSIUM 4.1 mmol/L (3.5-5.1); TOT PROT 6.4 g/dl (6.4-8.2)
[2023-02-10] MEDS: CYANOCOBALAMIN 1,000 MCG TABLET (FP) PO SCH (09:39)
[2023-02-10] MEDS: MULTIVITAMINS (DAILY MVI) TABLET (FP) PO SCH (09:39)
[2023-02-10] MEDS: APIXABAN 2.5 MG TABLET PO SCH ×2 (09:39→22:07)
[2023-02-10] MEDS: CEFTRIAXONE 1 GM in DEXTROSE 5%-WATER - 50 ML IVPB SCH (09:40)
[2023-02-10] MEDS: ATORVASTATIN CA 20 MG TABLET (FP) PO SCH (22:07)
[2023-02-11] MEDS: LEVOTHYROXINE NA 75 MCG TABLET (FP) PO SCH (06:14)
[2023-02-11] MEDS: TAMSULOSIN HCL 0.4 MG CAP PO SCH (09:21)
[2023-02-11] MEDS: APIXABAN 2.5 MG TABLET PO SCH (09:22)
[2023-02-11] MEDS: METOPROLOL TARTRATE 25 MG TABLET (FP) PO SCH (09:22)
[2023-02-11] MEDS: CYANOCOBALAMIN 1,000 MCG TABLET (FP) PO SCH (09:22)
[2023-02-11] MEDS: MULTIVITAMINS (DAILY MVI) TABLET (FP) PO SCH (09:23)
[2023-02-11] MEDS: CEFTRIAXONE 1 GM in DEXTROSE 5%-WATER - 50 ML IVPB SCH (09:23)
[2023-02-11 20:21] VITALS: BP 101/58; PULSE 95; RESP 18; TEMP 98.2
[2023-02-11] MEDS ORDERED: CEPHALEXIN MONOHYDRATE 500 MG CAPSULE (UD) PO SCH (22:00)
== END 2023-02-11 21:00 | DRG 690 ==
LOC: FER 17:39 → FM/S 19:10
PROVIDERS: ADMIT Internal Medicine; ATTEND Family Medicine
DX: N39.0 Urinary tract infection, site not specified (principal); I24.8 Other forms of acute ischemic heart disease; E87.1 Hypo-osmolality and hyponatremia; B96.20 Unspecified Escherichia coli [E. coli] as the cause of diseases classified elsewhere; E03.9 Hypothyroidism, unspecified; I48.91 Unspecified atrial fibrillation; E78.00 Pure hypercholesterolemia, unspecified; I07.1 Rheumatic tricuspid insufficiency; D64.9 Anemia, unspecified; F03.90 Unspecified dementia, unspecified severity, without behavioral disturbance, psychotic disturbance, mood disturbance, and anxiety; R50.9 Fever, unspecified; R77.8 Other specified abnormalities of plasma proteins; K76.0 Fatty (change of) liver, not elsewhere classified; K59.00 Constipation, unspecified; K63.5 Polyp of colon; Z86.73 Personal history of transient ischemic attack (TIA), and cerebral infarction without residual deficits; Z85.828 Personal history of other malignant neoplasm of skin
CPT/HCPCS: 0241U-QW; 36415; 70450-TC; 71045-TC-FY; 80053; 81003; 81015; 82550; 83540; 83550; 83605; 83930; 84484; 85027; 85610; 85730; 86850; 86900; 86901; 87040; 87086; 87186; 93005; 97116-GP; 97162-GP; 99285-25

== ENCOUNTER 2023-03-11 18:43 | Inpatient (IN) | payer OTHER, MEDICARE ==
[2023-03-11] MEDS ORDERED: SODIUM CHLORIDE 0.9% 500 ML INFUS.BAG IV ONE (19:27)
[2023-03-11] MEDS ORDERED: CEFTRIAXONE 1,000 MG in DEXTROSE 5%-WATER - 50 ML IVPB ONE (19:31)
[2023-03-11] MEDS ORDERED: cefTRIAXone SODIUM 1 GM VIAL ONE (19:52)
[2023-03-11 19:58] LABS: HEMATOCRIT 37.4 % (32.4-45.2); MCH 30.5 pg (25.7-33.7); MCHC 32.1 g/dl (32.0-36.0); MEAN PLT VOLUME 8.8 fl (7.5-11.1); PLATELET COUNT 256.5 10^3/uL (134-434); RBC 3.94 10^6/uL (3.60-5.2); RDW 14.6 % (11.6-15.6); WHITE BLOOD COUNT 9.3 10^3/uL (4.0-10.8)
[2023-03-11 20:18] LABS: ALBUMIN 3.1 g/dl (3.4-5.0); BILIRUBIN,TOTAL 0.7 mg/dl (0.2-1); BLOOD UREA NITROGEN 15.4 mg/dl (7-18); CALCIUM 10.6 mg/dl (8.5-10.1); CREATININE 0.5 mg/dl (0.6-1.3); POTASSIUM 4.6 mmol/L (3.5-5.1); SGOT/AST 78.4 U/L (15-37); SGPT/ALT 61.1 U/L (7-52); TOT PROT 6.8 g/dl (6.4-8.2)
[2023-03-11 21:09] LABS: VENOUS BASE EXCESS 1.6 mmol/L (-2-2); VENOUS PCO2 37.2 mmHg (38-52); VENOUS PH 7.45 (7.310-7.410)
[2023-03-11] MEDS ORDERED: AZITHROMYCIN IVPB 500 MG in DEXTROSE 5%-WATER - 250 ML IVPB ONE (21:26)
[2023-03-11] MEDS ORDERED: AZITHROMYCIN 500 MG VIAL IVPB ONE (21:30)
[2023-03-11] MEDS ORDERED: SODIUM CHLORIDE 1,000 ML IV SCH (22:00)
[2023-03-12] MEDS: ACETAMINOPHEN 1000 MG/100 ML BAG IVPB PRN ×2 (02:41→13:51)
[2023-03-12] MEDS: METOPROLOL TARTRATE 25 MG TABLET (FP) PO SCH ×3 (03:22→21:11)
[2023-03-12] MEDS: LEVOTHYROXINE NA 75 MCG TABLET (FP) PO SCH (07:06)
[2023-03-12 08:48] LABS: INR 1.38 (0.83-1.09)
[2023-03-12 08:50] LABS: ACTIVATED PTT 31.4 SECONDS (25.2-36.5)
[2023-03-12 09:06] LABS: ALBUMIN 2.9 g/dl (3.4-5.0); BILIRUBIN,TOTAL 0.6 mg/dl (0.2-1); CALCIUM 10.1 mg/dl (8.5-10.1); CREATININE 0.6 mg/dl (0.6-1.3); MAGNESIUM 1.4 mg/dL (1.8-2.4); PHOSPHOROUS 3.89 (2.5-4.9); POTASSIUM 4.4 mmol/L (3.5-5.1); SGOT/AST 56.1 U/L (15-37); SGPT/ALT 48.7 U/L (7-52); TOT PROT 6.3 g/dl (6.4-8.2)
[2023-03-12 09:30] LABS: HEMATOCRIT 34.5 % (32.4-45.2); HEMOGLOBIN 11.1 G/dL (10.7-15.3); MCH 30.7 pg (25.7-33.7); MCHC 32.1 g/dl (32.0-36.0); MEAN CELL VOLUME 95.6 fl (80-96); MEAN PLT VOLUME 9.1 fl (7.5-11.1); RBC 3.61 10^6/uL (3.60-5.2); RDW 15.5 % (11.6-15.6); WHITE BLOOD COUNT 10.8 10^3/uL (4.0-10.8)
[2023-03-12] MEDS: CYANOCOBALAMIN 1,000 MCG TABLET (FP) PO SCH (10:40)
[2023-03-12] MEDS: MULTIVITAMINS (DAILY MVI) TABLET (FP) PO SCH (10:40)
[2023-03-12] MEDS: APIXABAN 2.5 MG TABLET PO SCH ×2 (10:41→21:11)
[2023-03-12] MEDS: TAMSULOSIN HCL 0.4 MG CAP PO SCH (10:41)
[2023-03-12] MEDS: CEFTRIAXONE 1 GM in DEXTROSE 5%-WATER - 50 ML IVPB SCH (14:40)
[2023-03-12] MEDS: NYSTATIN POWDER 100,000 UNITS/GM - 15 GM TOPICAL POWDER TP SCH (21:10)
[2023-03-12] MEDS: ATORVASTATIN CA 20 MG TABLET (FP) PO SCH (21:11)
[2023-03-12] MEDS: MELATONIN 1 MG TABLET PO SCH (21:11)
[2023-03-12] MEDS: AZITHROMYCIN IVPB 500 MG/250 ML BAG IVPB SCH (21:12)
[2023-03-13] MEDS: LEVOTHYROXINE NA 75 MCG TABLET (FP) PO SCH (07:01)
[2023-03-13] MEDS: TAMSULOSIN HCL 0.4 MG CAP PO SCH (08:31)
[2023-03-13] MEDS: APIXABAN 2.5 MG TABLET PO SCH ×3 (11:05→22:06)
[2023-03-13] MEDS: METOPROLOL TARTRATE 25 MG TABLET (FP) PO SCH ×3 (11:06→22:15)
[2023-03-13] MEDS: NYSTATIN POWDER 100,000 UNITS/GM - 15 GM TOPICAL POWDER TP SCH (11:06)
[2023-03-13] MEDS: CEFTRIAXONE 1 GM in DEXTROSE 5%-WATER - 50 ML IVPB SCH (11:06)
[2023-03-13] MEDS: CYANOCOBALAMIN 1,000 MCG TABLET (FP) PO SCH (11:07)
[2023-03-13] MEDS: MULTIVITAMINS (DAILY MVI) TABLET (FP) PO SCH (11:07)
[2023-03-13] MEDS ORDERED: SODIUM CHLORIDE 1,000 ML IV SCH (16:00)
[2023-03-13] MEDS: ATORVASTATIN CA 20 MG TABLET (FP) PO SCH (22:00)
[2023-03-13] MEDS: AZITHROMYCIN IVPB 500 MG/250 ML BAG IVPB SCH (22:10)
[2023-03-14] MEDS: APIXABAN 2.5 MG TABLET PO SCH ×3 (05:55→21:36)
[2023-03-14] MEDS: MELATONIN 1 MG TABLET PO SCH ×2 (05:55→21:36)
[2023-03-14] MEDS: METOPROLOL TARTRATE 25 MG TABLET (FP) PO SCH ×3 (05:59→21:36)
[2023-03-14] MEDS: LEVOTHYROXINE NA 75 MCG TABLET (FP) PO SCH (06:48)
[2023-03-14 08:25] LABS: ALBUMIN 2.7 g/dl (3.4-5.0); BLOOD UREA NITROGEN 12.1 mg/dl (7-18); CALCIUM 9.9 mg/dl (8.5-10.1); CREATININE 0.4 mg/dl (0.6-1.3); POTASSIUM 4.1 mmol/L (3.5-5.1); SGOT/AST 294.3 U/L (15-37); SGPT/ALT 173.2 U/L (7-52); TOT PROT 6.2 g/dl (6.4-8.2)
[2023-03-14 09:34] LABS: BASO % 0.3 % (0-2.0); EOS % 0.3 % (0-4.5); HEMATOCRIT 31.4 % (32.4-45.2); HEMOGLOBIN 10.4 GM/dL (10.7-15.3); LYMPH % 9.5 % (8-40); MEAN CELL VOLUME 90.8 fl (80-96); MEAN PLT VOLUME 8.9 fl (7.5-11.1); MONO % 14.5 % (3.8-10.2); NEUT % 75.4 % (42.8-82.8); PLATELET COUNT 237 10^3/uL (134-434); RBC 3.46 M/mm3 (3.60-5.2); RDW 15.2 % (11.6-15.6); WHITE BLOOD COUNT 11.4 K/mm3 (4.0-10.0)
[2023-03-14] MEDS: TAMSULOSIN HCL 0.4 MG CAP PO SCH (10:31)
[2023-03-14] MEDS: CEFTRIAXONE 1 GM in DEXTROSE 5%-WATER - 50 ML IVPB SCH (10:31)
[2023-03-14] MEDS: CYANOCOBALAMIN 1,000 MCG TABLET (FP) PO SCH (10:31)
[2023-03-14] MEDS: MULTIVITAMINS (DAILY MVI) TABLET (FP) PO SCH (10:32)
[2023-03-14] MEDS: NYSTATIN POWDER 100,000 UNITS/GM - 15 GM TOPICAL POWDER TP SCH (10:32)
[2023-03-14 17:14] VITALS: BMI 23.3
[2023-03-14] MEDS: AMINO ACIDS/PROTEIN HYDROLYS 30 ML LIQUID.PKT PO SCH (18:01)
[2023-03-14] MEDS ORDERED: FUROSEMIDE 40 MG/4 ML INJECTABLE VIAL IVPUSH ONE (18:02)
[2023-03-14] MEDS ORDERED: DEXTROSE 5%-NORMAL SALINE 1,000 ML IV SCH (18:15)
[2023-03-14] MEDS ORDERED: ACETAMINOPHEN 1000 MG/100 ML BAG IVPB PRN (19:39)
[2023-03-14] MEDS ORDERED: MORPHINE SULFATE 10 MG/1 ML *VIAL IVPB ONE (20:30)
[2023-03-14] MEDS: CEFAZOLIN 1 GM in DEXTROSE 5%-WATER - 50 ML IVPB SCH (21:36)
[2023-03-15] MEDS: LEVOTHYROXINE NA 75 MCG TABLET (FP) PO SCH (06:33)
[2023-03-15] MEDS: TAMSULOSIN HCL 0.4 MG CAP PO SCH (08:17)
[2023-03-15] MEDS: AMINO ACIDS/PROTEIN HYDROLYS 30 ML LIQUID.PKT PO SCH ×3 (08:17→16:48)
[2023-03-15] MEDS: CYANOCOBALAMIN 1,000 MCG TABLET (FP) PO SCH (09:35)
[2023-03-15] MEDS: APIXABAN 2.5 MG TABLET PO SCH ×2 (09:35→21:20)
[2023-03-15] MEDS: MULTIVITAMINS (DAILY MVI) TABLET (FP) PO SCH (09:37)
[2023-03-15] MEDS: METOPROLOL TARTRATE 25 MG TABLET (FP) PO SCH ×2 (09:37→21:20)
[2023-03-15] MEDS: CEFAZOLIN 1 GM in DEXTROSE 5%-WATER - 50 ML IVPB SCH ×2 (09:37→21:20)
[2023-03-15] MEDS: NYSTATIN POWDER 100,000 UNITS/GM - 15 GM TOPICAL POWDER TP SCH (09:38)
[2023-03-15 18:05] VITALS: RESP 20
[2023-03-15] MEDS: MELATONIN 1 MG TABLET PO SCH (21:20)
[2023-03-15] MEDS: MORPHINE SULFATE/0.9% NACL/PF 100 MG/100 ML BAG IVPB SCH ×2 (21:22)
[2023-03-16] MEDS: LEVOTHYROXINE NA 75 MCG TABLET (FP) PO SCH (06:22)
[2023-03-16] MEDS: AMINO ACIDS/PROTEIN HYDROLYS 30 ML LIQUID.PKT PO SCH ×3 (08:30→17:46)
[2023-03-16] MEDS: TAMSULOSIN HCL 0.4 MG CAP PO SCH (08:30)
[2023-03-16] MEDS: APIXABAN 2.5 MG TABLET PO SCH ×2 (10:15→21:39)
[2023-03-16] MEDS: MULTIVITAMINS (DAILY MVI) TABLET (FP) PO SCH (10:15)
[2023-03-16] MEDS: METOPROLOL TARTRATE 25 MG TABLET (FP) PO SCH ×2 (10:15→21:39)
[2023-03-16] MEDS: CEFAZOLIN 1 GM in DEXTROSE 5%-WATER - 50 ML IVPB SCH ×2 (10:15→21:39)
[2023-03-16] MEDS: NYSTATIN POWDER 100,000 UNITS/GM - 15 GM TOPICAL POWDER TP SCH (10:16)
[2023-03-16] MEDS: CYANOCOBALAMIN 1,000 MCG TABLET (FP) PO SCH (10:17)
[2023-03-16] MEDS ORDERED: morphine SULFATE IMMEDIATE RELEASE 30 MG TAB PO PRN (14:05)
[2023-03-16] MEDS ORDERED: morphine CARPU-JECT 4 MG/1 ML DISP.SYRIN IVPUSH PRN (14:10)
[2023-03-16] MEDS ORDERED: MORPHINE SULFATE/0.9% NACL/PF 100 MG/100 ML BAG IVPB SCH (14:30)
[2023-03-16] MEDS: MELATONIN 1 MG TABLET PO SCH (21:40)
[2023-03-17] MEDS: LEVOTHYROXINE NA 75 MCG TABLET (FP) PO SCH (06:17)
[2023-03-17 09:59] VITALS: BP 98/64; PULSE 144; TEMP 98.1
[2023-03-17] MEDS: CEFAZOLIN 1 GM in DEXTROSE 5%-WATER - 50 ML IVPB SCH (10:12)
[2023-03-17] MEDS ORDERED: ACETAMINOPHEN 1000 MG/100 ML BAG IVPB PRN (11:15)
[2023-03-17] MEDS ORDERED: SCOPOLAMINE HYDROBROMIDE 1 PATCH PATCH.TD72 TD SCH (11:30)
[2023-03-17] MEDS ORDERED: BISACODYL 10 MG SUPP.RECT PR ONE (11:45)
[2023-03-17] MEDS: METOPROLOL TARTRATE 25 MG TABLET (FP) PO SCH (15:13)
[2023-03-17] MEDS: MULTIVITAMINS (DAILY MVI) TABLET (FP) PO SCH (15:13)
[2023-03-17] MEDS: CYANOCOBALAMIN 1,000 MCG TABLET (FP) PO SCH (15:13)
[2023-03-17] MEDS: APIXABAN 2.5 MG TABLET PO SCH (15:14)
[2023-03-17] MEDS: TAMSULOSIN HCL 0.4 MG CAP PO SCH (15:14)
[2023-03-17] MEDS: AMINO ACIDS/PROTEIN HYDROLYS 30 ML LIQUID.PKT PO SCH ×2 (15:14→16:55)
[2023-03-17] MEDS: NYSTATIN POWDER 100,000 UNITS/GM - 15 GM TOPICAL POWDER TP SCH (15:15)
== END 2023-03-17 21:20 | disposition short-term general hospital (02) | DRG 689 ==
LOC: FER 18:43 → FM/S 20:56
PROVIDERS: ADMIT Internal Medicine; ATTEND Family Medicine
DX: N39.0 Urinary tract infection, site not specified (principal); R53.2 Functional quadriplegia; E87.1 Hypo-osmolality and hyponatremia; I24.8 Other forms of acute ischemic heart disease; B96.20 Unspecified Escherichia coli [E. coli] as the cause of diseases classified elsewhere; I48.91 Unspecified atrial fibrillation; F03.90 Unspecified dementia, unspecified severity, without behavioral disturbance, psychotic disturbance, mood disturbance, and anxiety; E78.5 Hyperlipidemia, unspecified; E03.9 Hypothyroidism, unspecified; K76.0 Fatty (change of) liver, not elsewhere classified; K59.00 Constipation, unspecified; R77.8 Other specified abnormalities of plasma proteins; I07.1 Rheumatic tricuspid insufficiency; R79.89 Other specified abnormal findings of blood chemistry; Z85.828 Personal history of other malignant neoplasm of skin
CPT/HCPCS: 36415; 71045-TC-FY; 76705-TC; 80053; 81003; 81015; 82550; 82803; 83605; 83735; 84100; 84479; 84484; 85025; 85027; 85610; 85730; 87040; 87086; 87186; 87635; 93005; 99285-25